=== PATIENT | female | born 1940 | race Caucasian/White ===

== ENCOUNTER 2018-06-07 11:22 | Day surgery (SDC) | payer MEDICARE, OTHER, SELFPAY ==
--- NOTE | 2018-06-01 17:40 | PM.PREOP ---
Pre-operative Note Interval Note Pre-op Check: History & Physical Reviewed by Physician
--- NOTE | 2018-06-07 12:00 | PM.PREOP ---
Pre-operative Note Interval Note Pre-op Check: Yes History & Physical Reviewed by Physician Changes: No
[2018-06-07] MEDS: PROPARACAINE 0.5% OPHTH SOL 2 DROPS EYE-OP (12:25)
[2018-06-07] MEDS: CATARACT EYE COMPOUND (10 DROPS/SYRINGE) 3 DROPS EYE-OP (12:25)
[2018-06-07 12:35] VITALS: BP 135/82; PULSE 70; RESP 15; TEMP 36.2; O2SAT 99; BMI 22.3
--- NOTE | 2018-06-07 13:21 | PM.PREOP ---
Pre-operative Note Interval Note Pre-op Check: Yes History & Physical Reviewed by Physician Changes: No
--- NOTE | 2018-06-07 13:26 | P.OP_ITS ---
Procedure & Clinicians Procedure: Date of service: June 07, 2008 Preoperative diagnoses: 1. Complex nuclear sclerotic and cortical cataract. Need for capsular dye for mature cataract. Postperative diagnoses: 1. Cataract status post removal with posterior chamber intraocular implant not none. Procedure: Phacoemulsification with posterior chamber intraocular lens implant Surgeon: Zari Paul MD Complications: None Specimen: None Implant: +25.5 ZCBOO Blood loss: None Anesthesia: Retrobulbar with monitored standby Anesthesiologist: Mark Anthony Ramires M.D. Description of procedure: Patient is a 77 year old female with decreased vision due to cataract which is affecting activities of daily living. She wants surgery to improve vision. She has taken to the operating room and given IV sedation. A retrobulbar block insert consisting of 6 cc of 2% xylocaine without epinephrine mixed half and half with 0.5% Marcaine with 1 cc of hyaluronidase added is placed between the medial and lateral 1/3 of the inferior orbital rim. Lid akinesia is obtain with 1% xylocaine with epinephrine infiltrated along the lid margin. The eye is manually massaged for 30 sec, prepped using Betadine solution, and draped in the usual sterile fashion. Temporal approach was made, a 1 mm side-port incision was made at the 12 o' clock meridian. Phenylephrine 1.5% mixed with 1% xylocaine 0.2 cc was placed into the anterior chamber. an air bubble is placed followed by Visudyne dye in the anterior chamber to improve visibility.Has short axial length, poor red reflex and [place] heritage.Viscoat followed by Healon was then placed. A 2.6 mm clear incision with a 2.6 mm blade was placed at the 3 oclock meridian. A 360 degree capsulorrhexis style capsulotomy was then performed with a cystitome needle on a Healon. Hydrodelineation and hydrodissection were performed. The phacoemulsification unit is introduced, and sculpting notice used to groove the central lens. It is then removed in chopping mode. Epi nucleus is removed with epinuclear mode and irrigation aspiration was used to remove the peripheral cortex. The posterior capsule is polished. The intraocular lens is selected, inspected, power confirmed, and placed in the posterior chamber. The pupil was constricted. The wound was stromally hydrated and tested for leaks, there was none and was left sutureless. Vigamox 0.1 cc was placed into the anterior chamber. Kenalog 0.2 cc was placed in the superior subconjunctival space. A drop of antibiotic and was placed and the eye was patched and shielded. The patient was stable and returned to the recovery room in excellent condition. Dictated by: Zari Paul MD Copy to: [facility] Same procedure as scheduled: Yes
[2018-06-07] MEDS: CARBACHOL 1.5 ML VIAL INJ (13:48)
[2018-06-07] MEDS: BALANCED SALT IRRIG SOLN NO.2 15 ML IRRIG.SOLN IRR (13:48)
[2018-06-07] MEDS: NEOMYCIN/POLY/DEX OPHTH OINT 1 APPLIC EYE-LEFT (13:49)
[2018-06-07] MEDS: HYALURONATE SODIUM 10 MG/ML SYRINGE INJ (13:49)
[2018-06-07] MEDS: LIDOCAINE 1% W/EPI INJ 20 ML INJ (13:49)
[2018-06-07] MEDS: CHONDROIDTIN/SOD HYALURONATE 1.05 ML SYRINGE INTRAOCULA (13:49)
[2018-06-07] MEDS: MOXIFLOXACIN OPHTH DROPS 3 ML BOTTLE 2 DROPS INJ (13:49)
[2018-06-07] MEDS: OFLOXACIN 0.3% OPHTH 5 ML 2 DROPS EYE-LEFT (13:50)
[2018-06-07] MEDS: TRIAMCINOLONE 50 MG/5 ML VIAL INJ (13:50)
[2018-06-07] MEDS: PHENYLEPHRINE/LIDOCAINE 3ML VIAL (OR) EYE-OP (13:50)
[2018-06-07] MEDS: LIDOCAINE 2% 4 ML, BUPIVACAINE 0.5% (PF) 4 ML, HYALURONIDASE 150 UNIT INJ (13:51)
[2018-06-07] MEDS: TRYPAN BLUE 0.5 ML SYRINGE INJ (13:51)
[2018-06-07 14:11] VITALS: BP 126/76; PULSE 66; RESP 16; TEMP 36; O2SAT 100
== END 2018-06-07 14:20 | disposition home or self-care (01) ==
LOC: OR 11:24
PROVIDERS: Visit Provider Ophthalmology
DX: H25.12 Age-related nuclear cataract, left eye (principal)
CPT/HCPCS: J2250; J2704; J3010; J3301; J3470

== ENCOUNTER 2018-06-21 09:45 | Day surgery (SDC) | payer MEDICARE, OTHER, SELFPAY ==
--- NOTE | 2018-06-17 14:32 | PM.PREOP ---
Pre-operative Note Interval Note Pre-op Check: Yes History & Physical Reviewed by Physician Changes: No
--- NOTE | 2018-06-17 14:32 | PM.OP.1 ---
Operative Date/Time/Diagnoses Date of procedure: 06/21/18 Time of procedure: 13:33 Procedure & Clinicians Procedure: Date of service: June 21, 2000 Preoperative diagnoses: 1. Right mature nuclear sclerotic cataract Cataract. Need for complex surgery with use of capsular dye. 2. Hypercholesterolemia Postoperative diagnoses: 1. Cataract status post removal with phacoemulsification and posterior chamber intraocular lens implant. Procedure: Phacoemulsification with posterior chamber intraocular lens implant Surgeon: Zari Paul MD Complications: None Specimen: None Implant: ZCBOO+25.5 Blood loss: None Anesthesia: Retrobulbar with monitored standby Anesthesiologist: Philip Quezada M.D. Description of procedure: Patient is a female year old with decreased vision due to cataract which is affecting activities of daily living. She wants surgery to improve vision. Short axial length with steep cornea. Declines Toric IOL. She was taken to the operating room and given IV sedation. A retrobulbar block insert consisting of 6 cc of 2% xylocaine without epinephrine mixed half and half with 0.5% Marcaine with 1 cc of hyaluronidase added is placed between the medial and lateral 1/3 of the inferior orbital rim. Lid akinesia is obtain with 1% xylocaine with epinephrine infiltrated along the lid margin. The eye is manually massaged for 30 sec, prepped using Betadine solution, and draped in the usual sterile fashion. Temporal approach was made, a 1 mm side-port incision was made at the 7:30 position. Phenylephrine 1.5% mixed with 1% xylocaine 0.2 cc was placed into the anterior chamber. An air bubble was placed and Visudyne dye placed for better visibility. Viscoat followed by Rozina was then placed. A 2.6 mm clear incision with a 2.6 mm blade was placed at the 170 degree meridian. A 360 degree capsulorrhexis style capsulotomy was then performed with a cystitome needle on a Healon. Hydrodelineation and hydrodissection were performed. The phacoemulsification unit is introduced, and sculpting notice used to groove the central lens. It is then removed in chopping mode. Epi nucleus is removed with epinuclear mode and irrigation aspiration was used to remove the peripheral cortex. The posterior capsule is polished. The intraocular lens is selected, inspected, power confirmed, and placed in the posterior chamber. The pupil was constricted. The wound was stromally hydrated and tested for leaks, there was none and it was left sutureless. Vigamox 0.1 cc was placed into the anterior chamber. Kenalog 0.2 cc was placed in the superior subconjunctival space. A drop of antibiotic and was placed and the eye was patched and shielded. The patient was stable and returned to the recovery room in excellent condition. Dictated by: Zari Paul MD Copy to: [facility] Same procedure as scheduled: Yes
[2018-06-21] MEDS: PROPARACAINE 0.5% OPHTH SOL 2 DROPS EYE-OP (12:13)
[2018-06-21 12:18] VITALS: BP 140/75; PULSE 70; RESP 16; TEMP 36.1; O2SAT 100; BMI 23.0
[2018-06-21] MEDS: CATARACT EYE COMPOUND (10 DROPS/SYRINGE) 3 DROPS EYE-OP (12:18)
--- NOTE | 2018-06-21 13:25 | SUR.OPER ---
Supine on eye stretcher, head on extension cradle secured with tape. Arms tucked at sides with blanket. Pillow under knees.
[2018-06-21] MEDS: CHONDROIDTIN/SOD HYALURONATE 1.05 ML SYRINGE INTRAOCULA (13:32)
[2018-06-21] MEDS: BALANCED SALT IRRIG SOLN NO.2 15 ML IRRIG.SOLN IRR (13:32)
[2018-06-21] MEDS: MOXIFLOXACIN OPHTH DROPS 3 ML BOTTLE 2 DROPS INJ (13:33)
[2018-06-21] MEDS: LIDOCAINE 1% W/EPI INJ 20 ML INJ (13:33)
[2018-06-21] MEDS: NEOMYCIN/POLY/DEX OPHTH OINT 1 APPLIC EYE-RIGHT (13:34)
[2018-06-21] MEDS: TRYPAN BLUE 0.5 ML SYRINGE INJ (13:34)
[2018-06-21] MEDS: PHENYLEPHRINE/LIDOCAINE 3ML VIAL (OR) EYE-OP (13:34)
[2018-06-21] MEDS: TRIAMCINOLONE 50 MG/5 ML VIAL INJ (13:34)
[2018-06-21] MEDS: BALANCED SALT IRRIG SOLN NO.2 500 ML, EPINEPHrine 1 MG IRR (13:35)
[2018-06-21] MEDS: LIDOCAINE 2% 4 ML, BUPIVACAINE 0.5% (PF) 4 ML, HYALURONIDASE 150 UNIT INJ (13:35)
[2018-06-21 13:54] VITALS: BP 131/75; PULSE 71; RESP 15; TEMP 36.5; O2SAT 99
== END 2018-06-21 14:01 | disposition home or self-care (01) ==
LOC: OR 09:46
PROVIDERS: PCP Family Medicine; Visit Provider Ophthalmology
DX: H25.11 Age-related nuclear cataract, right eye (principal); E78.00 Pure hypercholesterolemia, unspecified
CPT/HCPCS: J0171; J2704; J3301; J3470